=== PATIENT | female | born 1940 | race Caucasian/White ===

== ENCOUNTER → 2023-06-14 10:08 | Outpatient (REF) | payer OTHER, SELFPAY | LOC: RAD 10:08 | PROVIDERS: ATTENDING PHYSICIAN Physician Assistant; FAMILY PHYSICIAN Nurse Practitioner Adult Health | DX: I73.9 Peripheral vascular disease, unspecified (principal) | CPT/HCPCS: 93922; 93925 ==

== ENCOUNTER → 2024-01-24 09:57 | Outpatient (REF) | payer OTHER, SELFPAY | LOC: RAD 09:57 | PROVIDERS: ATTENDING PHYSICIAN Surgery Vascular Surgery; FAMILY PHYSICIAN Internal Medicine | DX: I73.9 Peripheral vascular disease, unspecified (principal) | CPT/HCPCS: 93922; 93925 ==

== ENCOUNTER → 2024-06-28 10:40 | Outpatient (REF) | payer OTHER, SELFPAY ==
[2024-06-28 11:41] LABS: % Basophils 0.7 % (0-2); % Eosinophils 1.8 % (0-6); % Immature Granulocytes 0.4 % (0-0.5); % Lymphocytes 29.8 % (20.5-51.1); % Monocytes 7.8 % (1.7-9.3); % Neutrophils 59.5 % (42.2-75.2); Absolute Basophils 0.1 10^3/uL (0-0.2); Absolute Eosinophils 0.1 10^3/uL (0-0.7); Absolute Lymphocytes 2.2 10^3/uL (1.2-3.4); Absolute Monocytes 0.6 10^3/uL (0.1-0.6); Absolute Neutrophils 4.4 10^3/uL (1.4-6.5); Hematocrit 29.1 % (37.0-47.0); Hemoglobin 9.4 g/dL (12.0-16.0); Mean Corp Hgb Conc. 32.3 g/dL (33.0-37.0); Mean Corpuscular Hgb 29.4 pg (27.0-31.0); Mean Corpuscular Volume 90.9 fL (81.0-99.0); Mean Platelet Volume 11.8 fL (7.4-10.4); Nucleated Red Blood Cells % 0 %; Platelet Count 254 10^3/uL (130-400); Red Cell Dist. Width 13.5 % (11.5-14.5); White Blood Cell Count 7.3 10^3/uL (4.8-10.8)
[2024-06-28 11:43] LABS: ALT (SGPT) 20 U/L (0-35); AST (SGOT) 41 U/L (14-36); Albumin 4.3 g/dl (3.5-5.0); Alkaline Phosphatase 106 U/L (38-126); Blood Urea Nitrogen 50 mg/dl (7-17); Calcium 9.6 mg/dl (8.4-10.2); Carbon Dioxide 25 mmol/L (22-30); Chloride 108 mmol/L (98-107); Glucose 118 mg/dl (70-99); HDL Cholesterol 59 mg/dl; LDL Cholesterol, Calculated 104 mg/dl; Potassium 4.1 mmol/L (3.5-5.1); Sodium 146 mmol/L (135-145); Total Bilirubin 0.4 mg/dl (0.2-1.3); Total Cholesterol 183 mg/dl (50-199); Total Protein 7.4 g/dl (6.3-8.2); Triglyceride 100 mg/dl (10-149); Very Low Density Lipoprotein 20 mg/dl (0-30); eGFR 37.33
[2024-06-28 14:36] LABS: Glycohemoglobin (HgbA1c) 6.8 % (4.0-5.6)
== END ==
LOC: OLABWPC 10:40
PROVIDERS: ATTENDING PHYSICIAN Internal Medicine
DX: F03.90 Unspecified dementia, unspecified severity, without behavioral disturbance, psychotic disturbance, mood disturbance, and anxiety (principal); I73.9 Peripheral vascular disease, unspecified; D64.9 Anemia, unspecified; R73.03 Prediabetes; E78.2 Mixed hyperlipidemia
CPT/HCPCS: 36415; 80053; 80061; 83036; 85025

== ENCOUNTER → 2024-08-11 08:59 | Outpatient (REF) | payer OTHER, SELFPAY | LOC: RAD 08:59 | PROVIDERS: ATTENDING PHYSICIAN Physician Assistant; FAMILY PHYSICIAN Internal Medicine | DX: I73.9 Peripheral vascular disease, unspecified (principal) | CPT/HCPCS: 93922; 93925 ==

== ENCOUNTER → 2024-08-15 15:29 | Outpatient (REF) | payer OTHER, SELFPAY | LOC: RAD 15:29 | PROVIDERS: ATTENDING PHYSICIAN Nurse Practitioner Adult Health | DX: M54.50 Low back pain, unspecified (principal); M25.552 Pain in left hip | CPT/HCPCS: 72110; 73502 ==

== ENCOUNTER → 2025-02-08 10:54 | Outpatient (REF) | payer OTHER, SELFPAY ==
[2025-02-08 11:16] LABS: % Basophils 0.5 % (0-2); % Eosinophils 1.9 % (0-6); % Immature Granulocytes 0.3 % (0-0.5); % Lymphocytes 33.9 % (20.5-51.1); % Monocytes 8.1 % (1.7-9.3); % Neutrophils 55.3 % (42.2-75.2); Absolute Eosinophils 0.1 10^3/uL (0-0.7); Absolute Lymphocytes 2.5 10^3/uL (1.2-3.4); Absolute Monocytes 0.6 10^3/uL (0.1-0.6); Absolute Neutrophils 4.1 10^3/uL (1.4-6.5); Hematocrit 30.7 % (37.0-47.0); Hemoglobin 9.8 g/dL (12.0-16.0); Mean Corp Hgb Conc. 31.9 g/dL (33.0-37.0); Mean Corpuscular Hgb 29.8 pg (27.0-31.0); Mean Corpuscular Volume 93.3 fL (81.0-99.0); Mean Platelet Volume 11.6 fL (7.4-10.4); Nucleated Red Blood Cells % 0 %; Platelet Count 236 10^3/uL (130-400); Red Blood Cell Count 3.29 10^6/uL (4.20-5.40); Red Cell Dist. Width 14.6 % (11.5-14.5); White Blood Cell Count 7.4 10^3/uL (4.8-10.8)
[2025-02-08 11:47] LABS: ALT (SGPT) 14 U/L (0-35); AST (SGOT) 25 U/L (14-36); Albumin 4.6 g/dl (3.5-5.0); Alkaline Phosphatase 101 U/L (38-126); Blood Urea Nitrogen 35 mg/dl (7-17); Calcium 9.3 mg/dl (8.4-10.2); Carbon Dioxide 23 mmol/L (22-30); Chloride 112 mmol/L (98-107); Glucose 97 mg/dl (70-99); HDL Cholesterol 71 mg/dl; LDL Cholesterol, Calculated 165 mg/dl; Potassium 4.8 mmol/L (3.5-5.1); Sodium 145 mmol/L (135-145); Total Bilirubin 0.6 mg/dl (0.2-1.3); Total Cholesterol 251 mg/dl (50-199); Total Protein 7.8 g/dl (6.3-8.2); Triglyceride 77 mg/dl (10-149); Very Low Density Lipoprotein 15 mg/dl (0-30)
== END ==
LOC: OLABWPC 10:54
PROVIDERS: ATTENDING PHYSICIAN Internal Medicine
DX: R73.03 Prediabetes (principal); E78.2 Mixed hyperlipidemia; F03.90 Unspecified dementia, unspecified severity, without behavioral disturbance, psychotic disturbance, mood disturbance, and anxiety; D64.9 Anemia, unspecified
CPT/HCPCS: 36415; 80053; 80061; 85025

== ENCOUNTER → 2025-07-31 09:14 | Outpatient (REF) | payer OTHER, SELFPAY ==
[2025-07-31 09:47] LABS: Hematocrit 28.8 % (37.0-47.0); Hemoglobin 9.2 g/dL (12.0-16.0); Mean Corp Hgb Conc. 31.9 g/dL (33.0-37.0); Mean Corpuscular Volume 88.3 fL (81.0-99.0); Platelet Count 237 10^3/uL (130-400); Red Cell Dist. Width 14.7 % (11.5-14.5)
[2025-07-31 10:02] LABS: ALT (SGPT) 14 U/L (0-35); AST (SGOT) 26 U/L (14-36); Albumin 3.7 g/dl (3.5-5.0); Alkaline Phosphatase 79 U/L (38-126); Blood Urea Nitrogen 40 mg/dl (7-17); Calcium 8.9 mg/dl (8.4-10.2); Carbon Dioxide 29 mmol/L (22-30); Chloride 110 mmol/L (98-107); Glucose 95 mg/dl (70-99); Magnesium 2.4 mg/dl (1.6-2.3); Potassium 4.3 mmol/L (3.5-5.1); Sodium 144 mmol/L (135-145); Total Protein 6.9 g/dl (6.3-8.2); eGFR 40.55
== END ==
LOC: OLABWHC 09:14
PROVIDERS: ATTENDING PHYSICIAN Family Medicine
DX: I10 Essential (primary) hypertension (principal)
CPT/HCPCS: 36415; 80053; 83735; 85027